=== PATIENT | male | born 1970 | race African-American/Black ===

== ENCOUNTER 2017-07-02 11:45 | Inpatient (IN) | payer MEDICARE ==
[2017-07-02] MEDS ORDERED: Ondansetron HCl/PF 4 MG/2 ML Vial ONE (12:36)
[2017-07-02] MEDS ORDERED: Morphine 2 MG/ML SYRINGE ONE (12:36)
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
--- NOTE | 2017-07-02 16:15 | RAD ---
PORTABLE CHEST: 07/02/17 HISTORY: Cough. COMPARISON: 07/11/16. Lungs are clear. No infiltrate. Heart and mediastinum are unremarkable. IMPRESSION: No acute process. POS: [facility]
[2017-07-02] MEDS ORDERED: Diazepam 5 MG TAB PO PRN (16:34)
[2017-07-02] MEDS ORDERED: Diazepam 5 MG TAB PO SCH (16:45)
[2017-07-02] MEDS ORDERED: Thiamine HCl 200 MG/2 ML VIAL IM SCH (16:45)
[2017-07-02] MEDS ORDERED: Guaifenesin DM 100-10/5 ML UDCUP PO PRN (18:24)
[2017-07-02 18:33] VITALS: BMI 43.6
[2017-07-02 19:09] LABS: PTT 31.7 SEC (22.9-36.1); Prothrombin Time 14.4 SEC (12.0-14.7)
[2017-07-02] MEDS: Rivaroxaban 15 MG TAB PO SCH (20:28)
[2017-07-02] MEDS ORDERED: Acetaminophen 500 MG TAB PO PRN (20:52)
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
[2017-07-02] MEDS: traMADol HCl 50 MG TAB PO PRN (22:06)
[2017-07-02] MEDS: Benzonatate 100 MG CAP PO PRN (23:45)
[2017-07-03 05:16] LABS: #Eosinphils 0.1 thou/uL (0.0-0.7); #Lymphocytes 1.5 thou/uL (1.20-3.40); #Monocytes 0.6 thou/uL (0.11-0.59); #Neutrophils 5.1 thou/uL (1.40-6.50); %Basophils 0.2 % (0.0-1.0); %Eosinophils 1.9 % (0.0-10.0); %Lymphocytes 20.1 % (21.0-51.0); %Monocytes 7.6 % (0.0-10.0); Hematocrit 40.1 % (42.0-52.0); Mean Platelet Volume 7.1 fL (7.4-10.4); Red Blood Cell (RBC) Count 4.04 mill/uL (4.70-6.10); White Blood Cell (WBC) Count 7.3 thou/uL (4.8-10.8)
[2017-07-03] MEDS: traMADol HCl 50 MG TAB PO PRN ×3 (05:21→20:52)
[2017-07-03] MEDS: Benzonatate 100 MG CAP PO PRN ×5 (05:21→20:53)
[2017-07-03 05:41] LABS: Anion Gap 10 mmol/L (10-20); BUN (Urea Nitrogen) 7 mg/dL (8.9-20.6); Calc. Creatinine Clearance 303 mL/min (70-130); Calcium 8.8 mg/dL (7.8-10.44); Carbon Dioxide 26 mmol/L (22-29); Chloride 104 mmol/L (98-107); Estimated GFR-MDRD Greater than 90
--- NOTE | 2017-07-03 06:32 | PDOC.FM ---
- Subjective Subjective: Patient states he is still fighting a cough over night. He also mentions he feels dehydrated. He states that his leg is still painful at times. He also states he didn't sleep well last night because he didn't have his CPAP machine. I offered to order one for his use during the hospitalization, but he said that he is used to his own at home and can go without it for now. - Objective Vital Signs & Weight: Vital Signs (12 hours) Temp Pulse Resp BP BP Pulse Ox 07/03/17 04:00 98.3 F 92 16 127/85 98 07/03/17 00:00 122/81 07/02/17 23:35 99.3 F 92 16 122/81 99 07/02/17 20:00 99.3 F 92 16 131/82 121/82 96 Weight Weight 167 kg Result Diagrams: 07/03/17 04:05 07/03/17 04:05 <Joshua Machado - Last Filed: 07/03/17 07:21> - Objective Vital Signs & Weight: Vital Signs (12 hours) Temp Pulse Resp BP BP Pulse Ox 07/03/17 09:24 101 H 16 98 07/03/17 08:10 98.4 F 89 20 127/86 97 07/03/17 04:00 98.3 F 92 16 127/85 98 07/03/17 00:00 122/81 07/02/17 23:35 99.3 F 92 16 122/81 99 Weight Weight 167 kg I&O: 07/02/17 07/03/17 07/04/17 06:59 06:59 06:59 Output Total 850 Balance -850 Result Diagrams: 07/03/17 04:05 07/03/17 04:05 <Amrita Carlos - Last Filed: 07/03/17 09:49> Phys Exam - Physical Examination HEENT: PERRLA, moist MMs Neck: no nodes, no JVD, supple Respiratory: no wheezing, clear to auscultation bilateral Cardiovascular: RRR, no significant murmur Gastrointestinal: soft, non-tender, no distention, positive bowel sounds Musculoskeletal: edema present Pitting edema present bilaterally. Neurological: non-focal, normal sensation, moves all 4 limbs Lymphatic: no nodes Psychiatric: normal affect, A&O x 3 Skin: no rash <Joshua Machado - Last Filed: 07/03/17 07:21> Dx/Plan (1) DVT (deep venous thrombosis) Code(s): I82.409 - ACUTE EMBOLISM AND THOMBOS UNSP DEEP VN UNSP LOWER EXTREMITY Status: Acute Plan: -Initiated Xarelto -Will monitor for signs/symptoms of worsening condition -Hypercoag panel pending (2) SLE (systemic lupus erythematosus) Code(s): M32.9 - SYSTEMIC LUPUS ERYTHEMATOSUS, UNSPECIFIED Status: Acute Plan: -Autoimmune labs pending -Not currently on medication -Likely need terminologist outpatient follow up (3) Rectal bleeding Code(s): K62.5 - HEMORRHAGE OF ANUS AND RECTUM Status: Acute Plan: -Positive FOBT -Will follow CBC -Recommend outpatient follow up -Will consider anticoagulation vs not if bleeding becomes severe. (4) Alcohol abuse Code(s): F10.10 - ALCOHOL ABUSE, UNCOMPLICATED Status: Acute Plan: -ASE protocol, Thiamine, Valium -Advised to quit (5) Hypoalbuminemia Code(s): E88.09 - OTH DISORDERS OF PLASMA-PROTEIN METABOLISM, NEC Status: Acute Plan: -Nutrition counseling -Cessation of alcohol use -Will need outpatient follow up (6) Morbid obesity Code(s): E66.01 - MORBID (SEVERE) OBESITY DUE TO EXCESS CALORIES Status: Acute Plan: -Counseled on diet and exercise -Weight loss (7) Anxiety Code(s): F41.9 - ANXIETY DISORDER, UNSPECIFIED Status: Acute Plan: -Stable on no medication at this time. (8) Physical deconditioning Code(s): R53.81 - OTHER MALAISE Status: Acute Plan: -Await PT eval and treat -Weight loss and exercise regimen will benefit this patient. (9) JAYSHREE (obstructive sleep apnea) Code(s): G47.33 - OBSTRUCTIVE SLEEP APNEA (ADULT) (PEDIATRIC) Status: Acute Plan: -Uses home CPAP machine. -Denied hospital CPAP machine, will notify if needed going forward. - Plan Plan: Continue current plan of care. Will await full test results before further planning. <Joshua Machado - Last Filed: 07/03/17 07:21> Attending Addendum - Attending Addendum I personally evaluated the patient and discussed the management with Dr. Machado. I agree with the History, Examination, Assessment and Plan documented above with any addition or exceptions noted below. Patient has been started on xarelto for DVT. He is wheezing this morning. Will add albuterol nebs. Will also check respiratory panel as pt continue to cough and produce sputum. O2 sats are stable. Will get up with PT today. <Amrita Carlos - Last Filed: 07/03/17 09:49>
[2017-07-03] MEDS: Folic Acid 1 MG TAB PO SCH (07:52)
[2017-07-03] MEDS: Magnesium Oxide 400 MG TAB PO SCH (07:52)
[2017-07-03] MEDS: Multivitamin W/ Minerals 1 TAB PO SCH (07:52)
[2017-07-03] MEDS: Rivaroxaban 15 MG TAB PO SCH ×2 (07:52→20:53)
[2017-07-03] MEDS: Albuterol Sulfate 2.5 mg/3 ml Neb NEB PRN ×2 (09:24→16:42)
[2017-07-03] MEDS: Diazepam 5 MG TAB PO PRN (20:53)
[2017-07-04] MEDS: Diazepam 5 MG TAB PO PRN (02:05)
[2017-07-04] MEDS: traMADol HCl 50 MG TAB PO PRN (02:05)
[2017-07-04] MEDS: Benzonatate 100 MG CAP PO PRN (02:05)
--- NOTE | 2017-07-04 06:35 | PDOC.FM ---
- Subjective Subjective: Patient states he had a good night. He had less coughing and feels up to going home today. - Objective Vital Signs & Weight: Vital Signs (12 hours) Temp Pulse Resp BP BP Pulse Ox 07/04/17 04:00 98.2 F 97 20 131/88 131/88 96 07/04/17 01:50 131/89 07/04/17 00:00 98 F 90 18 131/89 98 07/03/17 20:00 98.5 F 90 18 125/83 125/83 98 Weight Weight 167 kg I&O: 07/02/17 07/03/17 07/04/17 06:59 06:59 06:59 Intake Total 1500 Output Total 2250 Balance -750 Result Diagrams: 07/04/17 06:47 07/04/17 06:47 <Joshua Machado - Last Filed: 07/04/17 07:22> - Objective Vital Signs & Weight: Vital Signs (12 hours) Temp Pulse Resp BP BP Pulse Ox 07/04/17 08:00 98.6 F 96 20 99 07/04/17 07:32 98.6 F 96 20 139/90 94 L 07/04/17 04:00 98.2 F 97 20 131/88 131/88 96 07/04/17 01:50 131/89 07/04/17 00:00 98 F 90 18 131/89 98 Weight Weight 167 kg I&O: 07/03/17 07/04/17 07/05/17 06:59 06:59 06:59 Intake Total 1500 360 Output Total 2250 Balance -750 360 Result Diagrams: 07/04/17 06:47 07/04/17 06:47 <Amrita Carlos - Last Filed: 07/04/17 09:11> Phys Exam - Physical Examination HEENT: PERRLA, moist MMs Neck: no nodes, no JVD, supple Respiratory: wheezing present Cardiovascular: RRR, no significant murmur Gastrointestinal: soft, non-tender, no distention, positive bowel sounds Musculoskeletal: edema present Edema and scarring present on bilateral lower extremities Neurological: non-focal, normal sensation, moves all 4 limbs Lymphatic: no nodes Psychiatric: normal affect, A&O x 3 <Joshua Machado - Last Filed: 07/04/17 07:22> Dx/Plan (1) DVT (deep venous thrombosis) Code(s): I82.409 - ACUTE EMBOLISM AND THOMBOS UNSP DEEP VN UNSP LOWER EXTREMITY Status: Acute Plan: -Initiated Xarelto -Will monitor for signs/symptoms of worsening condition -Hypercoag panel planning, will follow up after he goes home with results. (2) SLE (systemic lupus erythematosus) Code(s): M32.9 - SYSTEMIC LUPUS ERYTHEMATOSUS, UNSPECIFIED Status: Acute Plan: -Autoimmune labs pending -Not currently on medication -Likely need watermelon inspector outpatient follow up (3) Rectal bleeding Code(s): K62.5 - HEMORRHAGE OF ANUS AND RECTUM Status: Acute Plan: -Positive FOBT -Will follow CBC -Recommend outpatient follow up -Will consider anticoagulation vs not if bleeding becomes severe. (4) Alcohol abuse Code(s): F10.10 - ALCOHOL ABUSE, UNCOMPLICATED Status: Acute Plan: -ASE protocol, Thiamine, Valium -Advised to quit (5) Hypoalbuminemia Code(s): E88.09 - OTH DISORDERS OF PLASMA-PROTEIN METABOLISM, NEC Status: Acute Plan: -Nutrition counseling -Cessation of alcohol use -Will need outpatient follow up (6) Morbid obesity Code(s): E66.01 - MORBID (SEVERE) OBESITY DUE TO EXCESS CALORIES Status: Acute Plan: -Counseled on diet and exercise -Weight loss (7) Anxiety Code(s): F41.9 - ANXIETY DISORDER, UNSPECIFIED Status: Acute Plan: -Stable on no medication at this time. (8) Physical deconditioning Code(s): R53.81 - OTHER MALAISE Status: Acute Plan: -Weight loss and exercise regimen will benefit this patient. -PT recs home PT and OT for improvement of condition. -He states he has this set up with his PCP through [place]. (9) JAYSHREE (obstructive sleep apnea) Code(s): G47.33 - OBSTRUCTIVE SLEEP APNEA (ADULT) (PEDIATRIC) Status: Acute Plan: -Uses home CPAP machine. -Denied hospital CPAP machine, will notify if needed going forward. (10) Productive cough Code(s): R05 - COUGH Status: Acute Plan: -Patient given cough suppressants -Also albuterol nebs PRN -Will need outpatient follow up - Plan Plan: Patient can be discharged today <Joshua Machado - Last Filed: 07/04/17 07:22> Attending Addendum - Attending Addendum I personally evaluated the patient and discussed the management with Dr. Gamble. I agree with the History, Examination, Assessment and Plan documented above with any addition or exceptions noted below. The patient is feeling much better. The patient will be discharged on xarelto. <Amrita Carlos - Last Filed: 07/04/17 09:11>
[2017-07-04 07:03] LABS: #Eosinphils 0.1 thou/uL (0.0-0.7); #Lymphocytes 1.4 thou/uL (1.20-3.40); #Monocytes 0.3 thou/uL (0.11-0.59); #Neutrophils 5.1 thou/uL (1.40-6.50); %Basophils 0.6 % (0.0-1.0); %Eosinophils 1.9 % (0.0-10.0); %Lymphocytes 20.5 % (21.0-51.0); %Monocytes 4.6 % (0.0-10.0); Mean Platelet Volume 6.5 fL (7.4-10.4)
[2017-07-04 07:06] LABS: Anion Gap 11 mmol/L (10-20); BUN (Urea Nitrogen) 5 mg/dL (8.9-20.6); Calc. Creatinine Clearance 303 mL/min (70-130); Calcium 8.9 mg/dL (7.8-10.44); Carbon Dioxide 28 mmol/L (22-29); Chloride 101 mmol/L (98-107); Estimated GFR-MDRD Greater than 90
[2017-07-04 07:32] VITALS: BP 139/90; TEMP 98.6
[2017-07-04] MEDS: Folic Acid 1 MG TAB PO SCH (07:58)
[2017-07-04] MEDS: Multivitamin W/ Minerals 1 TAB PO SCH (07:58)
[2017-07-04] MEDS: Rivaroxaban 15 MG TAB PO SCH (07:58)
[2017-07-04] MEDS: Magnesium Oxide 400 MG TAB PO SCH (07:59)
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
[2017-07-05 12:32] LABS: Protein C Activity 87 % (78-152)
== END 2017-07-04 11:48 | disposition home or self-care (01) | DRG 300 ==
LOC: ERS 11:45 → 2SW 15:00 → OBSVTOIN 16:10 → T4-B 18:02
PROVIDERS: ADMIT Family Medicine; ATTEND Family Medicine
DX: I82.412 Acute embolism and thrombosis of left femoral vein (principal); Z68.41 Body mass index [BMI] 40.0-44.9, adult; M32.9 Systemic lupus erythematosus, unspecified; E88.09 Other disorders of plasma-protein metabolism, not elsewhere classified; E66.01 Morbid (severe) obesity due to excess calories; K62.5 Hemorrhage of anus and rectum; F41.9 Anxiety disorder, unspecified; G47.33 Obstructive sleep apnea (adult) (pediatric); J06.9 Acute upper respiratory infection, unspecified; F10.10 Alcohol abuse, uncomplicated; Z87.891 Personal history of nicotine dependence
CPT/HCPCS: 36415; 71010; 80048; 81240; 82274; 83090; 85025; 85240; 85300; 85303; 85305; 85307; 85379; 85598; 85610; 85730; 87633; 87798; 93005; 93970; 94640; 96374; 96375; G8978-GP-CL; G8979-GP-CJ; J2270; J2405; J7611